=== PATIENT | female | born 1985 | race Caucasian/White ===

== ENCOUNTER → 2020-07-18 11:35 | Outpatient (CLI) | payer OTHER, SELFPAY | PROVIDERS: Visit Provider Student in an Organized Health Care Education/Training Program | DX: Z34.83 Encounter for supervision of other normal pregnancy, third trimester (principal) | CPT/HCPCS: 36415; 86850 ==

== ENCOUNTER → 2020-09-11 | Outpatient (CLI) | payer OTHER, SELFPAY ==
[2020-09-11 15:48] LABS: Mucous, Urine 0 SEEN /hpf (<or=2+)
[2020-09-11 16:09] LABS: Color, Urine Yellow (Yellow); Glucose, Dipstick 1000 mg/dl (Normal); Ketone-Dipstick 15 mg/dl (Negative); Leukocyte Esterase-Dipstick 500 /ul (Negative); Nitrite-Dipstick Negative (Negative); Occult Blood-Urine 25 /ul (Negative); Protein-Dipstick 30 mg/dl (Negative); Specific Gravity, Urine 1.025 (1.002-1.030); Urine Bilirubin Dipstick Negative (Negative); Urine Clarity Sl. Cloudy (Clear); Urine Urobilinogen Normal (Normal)
[2020-09-11 16:23] LABS: Squamous Epithelial Cells - UA 10-25 SEEN /hpf (5-10)
[2020-09-11 16:24] LABS: Bacteria 3+ /hpf (None Seen); Red Blood Cells-Urine 0-5 SEEN /hpf (0-5); White Blood Cells 5-10 SEEN /hpf (0-5)
== END | disposition home or self-care (01) ==
LOC: LABSPEC 15:44
PROVIDERS: Visit Provider Obstetrics & Gynecology
DX: Z36.85 Encounter for antenatal screening for Streptococcus B (principal); O26.899 Other specified pregnancy related conditions, unspecified trimester; R39.15 Urgency of urination; Z3A.00 Weeks of gestation of pregnancy not specified
CPT/HCPCS: 81001; 87081; 87086; 87088

== ENCOUNTER 2020-09-27 14:05 | Inpatient (IN) | payer OTHER, SELFPAY ==
[2020-09-27] VITALS (15 sets, daily range): BP systolic 119–149; BP diastolic 71–93; PULSE 75–125; RESP 16–18; TEMP 36.6–37.2; O2SAT 95–99; BMI 44.1
--- NOTE | 2020-09-27 | PLAC_PTH ---
PATIENT: ANTONIO COWART LOC: [facility] U#:[id number] AGE/SX: 35/F ROOM: [facility] RE09/27/[address]: Dr. Sandro Cody MD : 1985 BED: 1 DIS: 09/28/2020 SPEC #: [id number] RECD: 09/27/20 22:02 STATUS: ALBERT LAWRENCE #: [id number] MARJ: 09/27/20 00:[address]: Sandro Cody DEPT: SURGICAL PATHOLOGY RECD BY: Evans Lofton ENTERED: 09/30/20 08:04 SP TYPE: PLACENTA OT DR: No Primary Care Phys Tissues: Placenta, NOS Procedures: Surgery Specimen Level V HEADER OPERATION: Repeat section PRE-OP DIAGNOSIS: Type 2 diabetes, IUFD at 38.3 weeks TISSUE SUBMITTED: Placenta MICROSCOPIC DIAGNOSIS Vail placenta (757 gm): Umbilical cord ? trivascular with no evidence of inflammation. Placental membranes ? minimal acute inflammation and occasional pigmented macrophages Placental disc ? organizing intraparenchymal hemorrhage and mildly increased intraparenchymal fibrin plaques and Tenny-Yuval change. AM:michel 10/01/2020 COMMENT Case has been reviewed in consultation with Dr. Dewey who concurs with the above diagnosis. IDC:SJ MICROSCOPIC DESCRIPTION Slides are reviewed. GROSS DESCRIPTION SPECIMEN: PLACENTA / CLINICAL INFORMATION: A. Weight: Not noted B. Gestational Age: 38 weeks C. Sex: Male PLACENTAL WEIGHT (POST FIXATION): 757 gm PLACENTAL DIMENSIONS: 23 x 17 x 4 cm PLACENTAL SHAPE: Usual ovoid PLACENTAL WEIGHT FOR GESTATIONAL AGE: Over 99th percentile MEMBRANES - Present A. Insertion: Marginal B. Site of rupture from edge: The membranes are fragmented and appear to be ruptured at the margin of the placenta. C. Color of membrane: Vallejo-espinoza D. Abnormalities: None UMBILICAL CORD - Present A. Color: Vallejo-espinoza B. Insertion: Centrally inserted, pink and macerated C. Length: 39 cm D. Diameter: 2.5 cm E. Number of vessels: Three F. Abnormalities: None PLACENTAL DISC - Present A. Color of surface: Vallejo-espinoza B. surface abnormalities: None C. Maternal cotyledons: Intact with minimal tears D. Attached retro placental clot: No clot E. Cut surface: Dark red and spongy F. Lesions: Sections reveal a vallejo, indurated lesion measuring 2.5 cm in greatest dimension. G. Separate clot: Absent SECTIONS SUBMITTED: 1. Membrane roll 2. Cord, maternal end 3. Cord, end 4. Placental disc, and maternal surfaces, lesion 5. Placental disc, and maternal surfaces 6. Placental disc, and maternal surfaces SJ:michel 09/30/20 TC:5 CPT: 71021
[2020-09-27] MEDS: Lactated Ringers 1,000 ML 999 ML IV (15:20)
[2020-09-27] MEDS: Lactated Ringers 1,000 ML 150 ML IV (16:20)
[2020-09-27 16:43] LABS: Absolute Lymphocyte Count 1.29 X10^3/uL (0.83-4.51); Absolute Neutrophil Count 5.6 X10^3/uL (2.0-7.7); Basophil# 0.02 X10^3/uL; Basophil% 0.3 % (0-1); Eosinophil# 0.04 X10^3/uL; Eosinophils% 0.5 % (0-5); Hematocrit 39.5 % (37-47); Hemoglobin 12.3 g/dL (12.0-15.0); Lymphocyte # 1.29 X10^3/ul (0.83-4.51); Lymphocyte % 16.7 % (19-41); Mean Corp Hgb Conc 31.1 g/dL (32-36); Mean Corpuscular Hgb 26.7 pg (27.0-32.0); Mean Corpuscular Volume 85.7 fL (81-99); Mean Platelet Vol. 10.2 fl (6.2-12.0); Monocyte# 0.63 X10^3/uL; Monocyte% 8.2 % (0-10); NRBC Flagged by Analyzer 0 % (0-5); Neutrophil # 5.62 X10^3/uL (2.7-7.7); Neutrophil % 72.9 % (47-70); Platelet Count 289 K/mm3 (150-450); RBC Distribution Width CV 15.7 % (11.6-14.6); RBC Distribution Width SD 48.3 fl (35.1-43.9); Red Blood Count 4.61 M/mm3 (4.2-5.4); White Blood Count 7.7 K/mm3 (4.4-11.0)
[2020-09-27] MEDS: Acetaminophen 500 MG Tablet 1000 MG PO ×2 (16:44→23:03)
--- NOTE | 2020-09-27 17:09 | PCM.HP.BLA ---
History and Physical Date of Admission: 09/27/20 Chief complaint: demise History of present illness: 35-year-old at 30 weeks and 3 days with SANA: 10/08/2020 by 9-week ultrasound arrives with demise. Denies headache, visual changes, chest pain, shortness of breath, nausea vomiting, right upper quadrant pain. Obstetric history: G1: SAB 02/23/2005 G2: complicated by hemorrhage with cervical laceration transfused 3 units 02/05/2005 G3: 38-week primary section 11/03/2010 G4: Current Past medical history: GDM A2 Medications: Metformin Past surgical history: section, ureteral stents Allergies: No known drug allergies Social history: Denies smoking, alcohol use, drug use Review of systems: Besides above pertinent positives a full review of systems was performed and found to be negative Physical exam: Vital signs: Blood pressure 136/93 pulse 101 General: Severe distress, tearful HEENT: Normocephalic/atraumatic no cervical lymphadenopathy Cardiac/respiratory: No use of accessory muscles, nonlabored breathing Abdomen: Soft, nontender, gravid Extremities: No peripheral edema normal peripheral pulses Psych: Sad, otherwise normal affect normal demeanor nonpressured speech Ultrasound in office: Vertex, no heart tones. Assessment plan: 35-year-old at 30 weeks and 3 days with demise at term. Patient with a previous history of a cervical laceration with transfusion that had primary section for this past history. Based on demise educated on vaginal delivery versus , patient elects for section understands the risk benefits alternatives of section include but are not limited to visceral or vascular injury, prolonged hospitalization, blood loss and need for transfusion, reoperation. Patient state understanding wish to proceed. All questions were answered and consent was signed. Educated patient on maternal and testing risk benefits alternatives, at this time patient declines. For repeat section now, 3 g Ancef.
[2020-09-27 17:35] LABS: Bedside Glucose 120 mg/dL (70-110)
[2020-09-27] MEDS: Sodium Citrate/Citric Acid 30 ML UDC PO (17:50)
--- NOTE | 2020-09-27 19:31 | EX.PCM.OBRPT ---
Details Operative Information Date of Procedure: 09/27/20 Pre-Operative Diagnosis: demise, history of section Post-Operative Diagnosis: demise, history of section Indications Narrative: Procedure: Repeat low transverse section Via Pfannenstiel incision Surgeon: Sandro Cody MD Anesthesia: General EBL: 600 cc Fluids: 1500 cc Urine output: 200 cc Complications: None Specimen: Placenta sent to pathology Findings: Male in vertex position, demise no signs of respiratory effort or heart rate. [place] with signs of anasarca and peeling skin. Otherwise no obvious abnormalities found. Normal uterus, tubes, and ovaries. Consent: Patient diagnosed with demise and history of section elects for repeat section. Patient understands the risk of the procedure include but are not limited to visceral or vascular injury, prolonged hospitalization, blood loss and need for transfusion, reoperation. Patient states understanding wish to proceed. All questions were answered and consent was signed. Procedure: Patient was brought back to the OR where spinal anesthesia was not found to be adequate and general anesthesia was required. 3 g of Ancef and 500 mg of azithromycin were given for infection prophylaxis. Patient was prepared and draped in a supine position with leftward tilt. Pfannenstiel incision was made at the skin with a scalpel. The incision was carried down the fascia with a scalpel. The fascia was excised and extended laterally. Inferior aspect of the fascia was grasped with a clamp and the underlying rectus and pyramidalis muscle were dissected off sharply with Hardin scissors. In a similar fashion the superior aspect of the fascia was grasped and the underlying rectus muscles dissected off sharply. Rectus muscle was dissected at the midline down to the level of the pubic symphysis. Preperitoneal fatty tissue was noted and peritoneum was entered bluntly. Peritoneum was extended superiorly and inferiorly with good visualization of the bladder. Bladder blade was inserted and vesicouterine peritoneum was identified. Low transverse hysterotomy was made. Hand was placed into the hysterotomy and gentle fundal pressure was applied once the head was brought into the hysterotomy and the bladder blade was removed. Head and shoulders were delivered with ease. Cord was cut and clamped. Baby is handed off to nursing. Placenta was delivered via cord traction and fundal massage. IV oxytocin was initiated in order to facilitate uterine contractions. Uterus was exteriorized and wiped out with dry laparotomy sponges in order to remove remaining placental membranes. Uterus was closed in continuous running fashion. Second layer was performed. Good hemostasis noted. Uterus was placed back in the abdominal cavity and the incision was reinspected. Good hemostasis was noted. Fascia was closed in a continuous running fashion. Skin was closed in a subcuticular fashion. All counts correct x2. Patient tolerated the procedure well was brought to recovery in a stable condition.
[2020-09-27] MEDS: Oxytocin 30 units/NS 500 ml 30 UNITS/500 ML IV.SOLN 167 UNITS IV (19:40)
[2020-09-27] MEDS: 0.9% Saline Lock 10 ML Syringe IV (20:35)
[2020-09-27] MEDS: Ketorolac 30 MG/ML Syringe IV (20:36)
[2020-09-27 22:04] LABS: Pathology Specimen OB SEE PATHOLOGY REPORT
[2020-09-27 22:15] LABS: Bedside Glucose 153 mg/dL (70-110)
[2020-09-27] MEDS: Lactated Ringers 1,000 ML 100 ML IV (22:45)
[2020-09-28] VITALS (163 sets, daily range): BP systolic 106–126; BP diastolic 59–77; PULSE 78–120; RESP 16–18; TEMP 36.8–37.7; O2SAT 90–100
[2020-09-28] MEDS: Zolpidem Tartrate 5 MG Tablet PO (00:30)
[2020-09-28] MEDS: Ketorolac 30 MG/ML Syringe IV ×3 (02:32→14:35)
[2020-09-28] MEDS: Acetaminophen 500 MG Tablet 1000 MG PO ×2 (04:24→10:54)
[2020-09-28 06:51] LABS: Bedside Glucose 120 mg/dL (70-110)
[2020-09-28 07:02] LABS: Hematocrit 31.5 % (37-47); Hemoglobin 9.8 g/dL (12.0-15.0); Mean Corp Hgb Conc 31.1 g/dL (32-36); Mean Corpuscular Hgb 26.9 pg (27.0-32.0); Mean Corpuscular Volume 86.5 fL (81-99); Mean Platelet Vol. 9.6 fl (6.2-12.0); Platelet Count 244 K/mm3 (150-450); RBC Distribution Width CV 15.9 % (11.6-14.6); RBC Distribution Width SD 49.1 fl (35.1-43.9); Red Blood Count 3.64 M/mm3 (4.2-5.4); White Blood Count 8.6 K/mm3 (4.4-11.0)
[2020-09-28] MEDS: 0.9% Saline Lock 10 ML Syringe IV ×2 (09:06→14:35)
[2020-09-28] MEDS: metFORMIN (XR) 500 MG Tablet PO (09:06)
--- NOTE | 2020-09-28 10:06 | NURSING ---
read montague sticker to get insertion info. was placed by ROBBIE THORNTON at 1805 yesterday
[2020-09-28] MEDS: Senna/Docusate Sodium 1 Tablet PO (10:54)
--- NOTE | 2020-09-28 11:00 | PCM.DC ---
Discharge Instructions Diet Discharge Diet: No restrictions Activity Discharge Activity: Return to Normal Activity, May Drive, May Shower and - (No tub baths for 2 weeks) May resume sexual activity in: 4-6 weeks Lifting Restrictions: No lifting over 25 pounds for 2 to 3 weeks Dressing / Incision Call your doctor if your incision/area has: Continuous Slow Oozing and Foul Smelling Discharge Call your doctor if you observe: Fever of 101 or Higher, Shortness of breath and Chest pain Follow Up Care Please Follow Up With: Sandro Cody MD When: 1 week follow-up Test Results: Test results from this visit will be discussed in further detail at your follow-up appointment, if applicable. Discharge Plan Admission Admit Date/Time: 09/27/20 14:05 Primary Reason for Your Visit: demise Attending Provider: Sandro Cody Primary Care Provider: Care Physician,Jennifer Primary Discharge Orders/Prescriptions Prescriptions: New oxycodone 5 mg Tablet 5 mg PO Q4H PRN PRN (Reason: Pain Score 4-10) 4 Days Qty: 24 RF: 0 zolpidem [Ambien] 10 mg tablet 10 mg PO QHS PRN (Reason: insomnia) 14 Days Qty: 14 RF: 0 docusate sodium [Colace] 100 mg capsule 100 mg PO BID Qty: 60 RF: 1 Continued omeprazole 20 mg Capsule,Delayed Release(Dr/Ec) 20 mg PO DAILY RF: 0 metformin 500 mg Tablet Extended Release 24hr 500 mg PO DAILY RF: 0 Discontinued 1 mg Tablet 1 tab PO RF: 0 Referrals / Follow Up: Care Physician,No Primary [Primary Care Provider] - Disposition Disposition (needs filled in before D/C Order can be placed): Home, Self Care
--- NOTE | 2020-09-28 11:01 | PN.OBGYN_ITS ---
Subjective Subjective Patient overall doing well, pain well controlled. Emotionally sad but doing well Objective Data Objective Data Vital Signs: Vital Signs Temp Pulse Resp BP Pulse Ox 98.8 F 90 18 124/75 H 95 09/28/20 08:56 09/28/20 10:00 09/28/20 10:00 09/28/20 08:58 09/28/20 10:00 Oxygen Delivery Method Room Air Weight: 281 lb 15.539 oz Body Mass Index (BMI) 44.1 Intake & Output: Intake and Output for Last 24 Hours 09/26/20 09/27/20 09/28/20 23:59 23:59 23:59 Intake Total 2189 / 2189 1696 / 1696 Output Total 250 / 250 1800 / 1800 Balance 193 / 193 -104 / -104 Lab / Micro Data Result Diagrams: 09/28/20 06:45 Labs: Laboratory Results - last 24 hr 09/27/20 15:20: WBC 7.7, RBC 4.61, Hgb 12.3, Hct 39.5, MCV 85.7, MCH 26.7 L, MCHC 31.1 L, RDW Std Deviation 48.3 H, RDW Coeff of Nan 15.7 H, Plt Count 289, MPV 10.2, Immature Gran % (Auto) 1.400 H, Neut % (Auto) 72.9 H, Lymph % (Auto) 16.7 L, Barren % (Auto) 8.2, Eos % (Auto) 0.5, Baso % (Auto) 0.3, Absolute Neuts (auto) 5.6, Absolute Lymphs (auto) 1.29, Nucleated RBC % 0 09/27/20 15:20: Blood Type O NEGATIVE, Antibody Screen NEGATIVE 09/27/20 16:58: POC Glucose 120 H 09/27/20 21:30: Screen NEGATIVE, Baby's Blood Type TNP, Baby's PATITO TNP 09/27/20 21:32: POC Glucose 153 H 09/28/20 06:43: POC Glucose 120 H 09/28/20 06:45: WBC 8.6, RBC 3.64 L, Hgb 9.8 L, Hct 31.5 L, MCV 86.5, MCH 26.9 L , MCHC 31.1 L, RDW Std Deviation 49.1 H, RDW Coeff of Nan 15.9 H, Plt Count 244, MPV 9.6 Micro: Microbiology 09/27/20 16:00 Mucosa - Nose SARS-CoV-2 Antigen (Rapid) - Final Physical Exam Const alert, oriented x3, no apparent distress, average body habitus, healthy appearing and well nourished HEENT normocephalic Head and Scalp: atraumatic Face and Sinus: normal facial exam Resp normal respiratory effort, no retractions and no use of accessory muscles Extremity normal to inspection, full ROM and no clubbing, cyanosis or edema Psych Psych Narrative: Mildly depressed, tearful Assessment & Plan (1) delivery delivered: PLAN: Postop day 1 status post repeat section for demise at 38 weeks. Patient being well supported by , has seen financial economist and wishes to go home with her family. Is tearful, discussed depression at this time patient would like expectant management. Does have difficulty sleeping. Pain overall well controlled. Okay to discharge home today. Follow-up in 1 week
--- NOTE | 2020-09-28 11:54 | CASEMGMT ---
Addendum entered by Mirna Angel 09/28/20 21:40: SW asked ROBBIE Brown to provide patient with information about [facility] and Share and Loss support to patient. Mirna NIETO Original Note: GUANAKITO Note Referral Source: Project Development Director Referral Reason: Demise SW called and spoke to broker in charge, Mary. She said that the was in the morgue as patient did not want to visit the anymore. RN said that, per patient's request, the salsa dance instructor had been called and was coming to give a blessing to the . SW met with patient and her . Both appeared to be very appropriately grieving and tearful. reports that they are still in shock. Patient reports they have local family who is a support. Patient said that they are planning to go home today. Patient asked about grief counseling. SW explained that patient could call hospice to see about a grief counselor in the area. Patient said that she did not want a support group. /FOB said that they could also contact insurance to see who would be a provider for grief counseling. Patient and her voiced no needs or concerns at this time. Emotional support provided to patient and her /FOB. SW also advised that if patient needs any additional support to contact the social worker health services Angélica Melara or any SW staff at [facility] for support. Patient verbalized understanding. SW will remain available today if further needs or issues arise. Plan: Home, GUANAKITO provided emotional support. Mirna NIETO
--- NOTE | 2020-09-28 11:59 | NURSING ---
patient chose a home, [facility] in [place]. Rn called and gave needed information, they state they will send someone to hospital to pic up baby.
--- NOTE | 2020-09-28 13:57 | NURSING ---
RN has spent much time in patients room today. She had long conversation with Dr Cody as well. Discussed going home today, she is ok'd to leave at any time. RN encouraged her to make sure she can ambulate well and with pain control before leaving. With discussion, decided will leave late this afternoon. RN also reiterated the importance of frequent ambulation and I.S. use agustín with her cough. Pt verbalizes understanding and agreement.
--- NOTE | 2020-09-28 15:10 | NURSING ---
given phone numbers for [facility] and [facility]
--- NOTE | 2020-09-28 16:39 | NURSING ---
when walking patient out, continued emotional support given. reminded her importance of taking care of herself, she verbalized understanding. states she will call OB with any abnormals
== END 2020-09-28 16:30 | disposition home or self-care (01) | DRG 788 ==
PROVIDERS: Admitting Provider Obstetrics & Gynecology; Referring Provider Obstetrics & Gynecology; Visit Provider Obstetrics & Gynecology
DX: O36.4XX0 Maternal care for intrauterine death, not applicable or unspecified (principal); O34.211 Maternal care for low transverse scar from previous cesarean delivery; Z20.822 Contact with and (suspected) exposure to COVID-19; E66.01 Morbid (severe) obesity due to excess calories; Z86.32 Personal history of gestational diabetes; Z3A.38 38 weeks gestation of pregnancy; Z37.1 Single stillbirth
CPT/HCPCS: 82962; 85025; 85027; 85461; 86850; 86900; 86901; 87426; 88307; 90384; 99218; J7120; A4216; G0378; J2405; J2790

== ENCOUNTER 2021-03-04 15:26 | Outpatient (CLI) | payer OTHER, SELFPAY ==
[2021-03-04 16:18] LABS: Absolute Lymphocyte Count 1.79 X10^3/uL (0.83-4.51); Absolute Neutrophil Count 4.6 X10^3/uL (2.0-7.7); Basophil# 0.03 X10^3/uL; Basophil% 0.4 % (0-1); Eosinophil# 0.18 X10^3/uL; Eosinophils% 2.5 % (0-5); Hematocrit 39.8 % (37-47); Lymphocyte # 1.79 X10^3/ul (0.83-4.51); Lymphocyte % 24.9 % (19-41); Mean Corp Hgb Conc 32.7 g/dL (32-36); Mean Corpuscular Hgb 27.1 pg (27.0-32.0); Mean Corpuscular Volume 82.9 fL (81-99); Mean Platelet Vol. 8.7 fl (6.2-12.0); Monocyte# 0.55 X10^3/uL; Monocyte% 7.7 % (0-10); NRBC Flagged by Analyzer 0 % (0-5); Neutrophil % 64.1 % (47-70); Platelet Count 379 K/mm3 (150-450); RBC Distribution Width CV 14.8 % (11.6-14.6); RBC Distribution Width SD 45.1 fl (35.1-43.9); White Blood Count 7.2 K/mm3 (4.4-11.0)
[2021-03-05 08:42] LABS: HIV - WCH Non-Reactive (Nonreactive); Hepatitis B Surface Antigen Non-Reactive (Nonreactive); Hepatitis C Antibody Non-Reactive (Nonreactive); Rubella IgG Reactive (Nonreactive); Syphilis Antibodies Non-reactive
[2021-03-06 22:07] LABS: Chlamydia By Nucleic Acid AMP Negative (Negative)
[2021-03-07 11:31] LABS: Gonococcus By Nucleic Acid AMP Negative (Negative)
[2021-03-08 16:26] LABS: HPV APTIMA, High Risk Negative (Negative)
== END 2021-03-04 23:59 | disposition short-term general hospital (02) ==
LOC: WOBLAB 15:27
PROVIDERS: Visit Provider Obstetrics & Gynecology
DX: Z34.81 Encounter for supervision of other normal pregnancy, first trimester (principal); Z11.3 Encounter for screening for infections with a predominantly sexual mode of transmission
CPT/HCPCS: 36415; 85025; 86703; 86762; 86780; 86803; 87077; 87086; 87088; 87186; 87340; 87491; 87591; 87624; 88175; G0145

== ENCOUNTER 2021-03-18 14:55 | Outpatient (CLI) | payer OTHER, SELFPAY ==
[2021-03-18 14:58] LABS: Mucous, Urine 0 SEEN /hpf (<or=2+); Red Blood Cells-Urine 0 SEEN /hpf (0-5)
[2021-03-18 17:07] LABS: Color, Urine Yellow (Yellow); Glucose, Dipstick Normal (Normal); Ketone-Dipstick Negative (Negative); Leukocyte Esterase-Dipstick Negative /ul (Negative); Nitrite-Dipstick Negative (Negative); Occult Blood-Urine Negative /ul (Negative); Protein-Dipstick Negative (Negative); Specific Gravity, Urine 1.015 (1.002-1.030); Urine Bilirubin Dipstick Negative (Negative); Urine Clarity Clear (Clear); Urine Urobilinogen Normal (Normal); Urine pH 6.5 (5.0 - 8.0)
[2021-03-18 17:22] LABS: ALB/GLOB Ratio 0.8 RATIO (0.9-2.4); AST(SGOT) 18 U/L (15-37); Alanine Aminotransfer ALT/SGPT 21 U/L (13-56); Albumin, Serum 3.4 g/dL (3.2-5.0); Alkaline Phosphatase 33 U/L (45-117); Anion Gap 7 (5-15); BUN 12 mg/dL (7-18); BUN/Creat Ratio 18.8 RATIO (10-20); Bacteria 1+ /hpf (None Seen); Calcium,Total 8.6 mg/dL (8.5-10.1); Chloride 104 mmol/L (98-107); Creatinine, Serum 0.64 mg/dL (0.55-1.02); EST Glomerular Filtration Rate 112 mL/min (>60); Est Glom Filt Rate - Afr Amer 135 mL/min (>60); Globulin 4.2 g/dL (2.2-4.2); Glucose 101 mg/dL (74-106); LDH 153 U/L (84-246); Potassium 3.9 mmol/L (3.5-5.1); Protein, Total 7.6 g/dL (6.4-8.2); Sodium Level 136 mmol/L (136-145); Squamous Epithelial Cells - UA 5-10 SEEN /hpf (5-10); White Blood Cells 0-5 SEEN /hpf (0-5)
[2021-03-18 17:45] LABS: Protein, Urine (Random) 14.5 mg/dL (<11.9); Protein:Creat Ratio 226 mg/g CRE (0-200)
== END 2021-03-18 23:59 | disposition short-term general hospital (02) ==
LOC: WOBLAB 14:55
PROVIDERS: Visit Provider Obstetrics & Gynecology
DX: I10 Essential (primary) hypertension (principal)
CPT/HCPCS: 36415; 80053; 81001; 82570; 83615; 84156

== ENCOUNTER 2021-04-09 14:42 | Outpatient (CLI) | payer OTHER, SELFPAY | END 2021-04-09 23:59 | disposition home or self-care (01) | PROVIDERS: Referring Provider Obstetrics & Gynecology; Visit Provider Obstetrics & Gynecology | DX: N64.52 Nipple discharge (principal) ==

== ENCOUNTER 2021-04-15 09:30 | Outpatient (CLI) | payer OTHER, SELFPAY ==
--- NOTE | 2021-04-15 09:34 | US_ITS ---
STUDY: ULTRASOUND BREAST - RIGHT REASON FOR EXAM: Female, 36 years old. Nipple discharge in the right breast. TECHNIQUE: Axial and longitudinal images of the RIGHT breast were performed with a high resolution ultrasound transducer. # OF IMAGES: 41 COMPARISON: None. FINDINGS: RIGHT Breast: The retroareolar region of the right breast was examined by ultrasound. No sonographic abnormality is seen. US/Breast Limited Unilateral IMPRESSION: No sonographic abnormality is seen. ASSESSMENT CATEGORY: BIRADS Category 1: Negative. A letter regarding these results will be sent to the patient by the facility within 30 days. Electronically Signed: Talat Curiel MD at 11:09 EST ,
== END 2021-04-15 23:59 | disposition home or self-care (01) ==
PROVIDERS: Visit Provider Obstetrics & Gynecology
DX: Z34.81 Encounter for supervision of other normal pregnancy, first trimester (principal); N64.52 Nipple discharge
CPT/HCPCS: 36415; 76642

== ENCOUNTER 2021-05-12 11:10 | Outpatient (CLI) | payer OTHER, SELFPAY ==
[2021-05-12 13:56] LABS: Hemoglobin A1c 6.1 % (3.8-5.6)
[2021-05-12 13:57] LABS: Thyroid Stim Hormone (TSH) 0.62 uIU/mL (0.358-3.74)
[2021-05-15 01:07] LABS: AFP MoM Value 0.46 (.); Comment Report (.); DIA MoM Value 0.44 (.); DIA Value-EIA 56.62 pg/mL (.); DSR (By Age) 203 (.); DSR (Second Trimester) 10000 (.); Gestat. Age Based On As provided (.); Insulin Dep Diabetes No (.); Maternal Age At EDD 36.7 yr (.); hCG Value 16668 mIU/mL (.)
== END 2021-05-12 23:59 | disposition home or self-care (01) ==
LOC: WOBLAB 11:14
PROVIDERS: Visit Provider Obstetrics & Gynecology
DX: O24.112 Pre-existing type 2 diabetes mellitus, in pregnancy, second trimester (principal)
CPT/HCPCS: 36415; 82105; 82677; 83036; 84439; 84443; 84702

== ENCOUNTER → 2021-08-19 | Outpatient (CLI) | payer OTHER, SELFPAY ==
[2021-08-19 11:57] LABS: Mean Corp Hgb Conc 33.3 g/dL (32-36); Mean Corpuscular Hgb 28.9 pg (27.0-32.0); Mean Corpuscular Volume 86.7 fL (81-99); Mean Platelet Vol. 9.5 fl (6.2-12.0); Platelet Count 314 K/mm3 (150-450); RBC Distribution Width CV 14.3 % (11.6-14.6); RBC Distribution Width SD 45.3 fl (35.1-43.9); Red Blood Count 4.15 M/mm3 (4.2-5.4); White Blood Count 8.5 K/mm3 (4.4-11.0)
[2021-08-19 12:15] LABS: Hemoglobin A1c 6.3 % (3.8-5.6)
== END | disposition home or self-care (01) ==
PROVIDERS: Visit Provider Obstetrics & Gynecology
DX: O24.913 Unspecified diabetes mellitus in pregnancy, third trimester (principal)
CPT/HCPCS: 36415; 83036; 85027; 86850

== ENCOUNTER 2021-09-03 22:40 | Outpatient (CLI) | payer OTHER, SELFPAY ==
[2021-09-03] VITALS (15 sets, daily range): BP systolic 142; BP diastolic 83; PULSE 95–122; TEMP 36.5; O2SAT 94–98
[2021-09-04 00:04] VITALS: PULSE 98; O2SAT 96
[2021-09-04 00:09] VITALS: PULSE 95; O2SAT 96
[2021-09-04 00:50] VITALS: BMI 44.2
--- NOTE | 2021-09-10 13:23 | OB.TRI.NOTE ---
HPI - General HPI Narrative ANTONIO COWART, is a 36 F who presents to labor and delivery with decreased movement at 31 weeks 5 days gestation. PFSH PFSH Medical History (Updated 09/10/21 @ 15:[address] Steve Sparks MD) Diabetes mellitus History of blood transfusion macrosomia depression Stillborn, normal Home Medications metformin 500 mg tablet,extended release 24hr 500 mg PO DAILY diabetes 09/27/20 [History Last Taken 09/02/21 08:00] omeprazole 20 mg capsule,delayed release 20 mg PO DAILY indigestion 09/27/20 [History Last Taken 09/27/20 09:00 20 mg] aspirin 81 mg capsule 81 mg PO DAILY 09/03/21 [History Last Taken Unknown] insulin lispro 100 unit/mL subcutaneous pen 14 unit subcut DAILY 09/03/21 [History Last Taken Unknown] insulin regular human 100 unit/mL injection solution cartridge 20 unit subcut DAILY Check with primary doctor 09/03/21 [History Last Taken Unknown] [id number] 1 mg tablet tab PO 09/03/21 [History Last Taken Unknown] Allergy/AdvReac Type Severity Reaction Status Date / Time No Known Allergies Allergy Verified 09/03/21 23:39 Family History (Updated 09/27/20 @ 15:37 by Susy Vasquez) Father Heart disease Mother CVA (cerebral vascular accident) Mother Diabetes Mother Cancer Surgical History (Updated 09/27/20 @ 15:37 by Susy Vasquez) History of surgery Previous section Social History (Updated 09/27/20 @ 15:37 by Susy Vasquez) number of children: 2 current occupational status: employed current occupation: nurse Smoking Status: Never smoker History Elective abortions Hx Para 2 Spontaneous abortions Hx # Term Pregnancies Ectopic pregnancies Hx # Pregnancies Multiple births # of living children NST FHR Rate Baby A NST Reactive:: Yes FHR Category:: Category I Assessment & Plan (1) Decreased movement: PLAN: 31+ week intrauterine with decreased movement. Reactive nonstress test. Discharge to home with routine instructions.
--- NOTE | 2021-09-10 15:08 | OB.TRI.NOTE ---
HPI - General General Date of Service: 09/03/21 HPI Narrative ANTONIO COWART, is a 36 F who presents to labor and delivery with decreased movement. PFSH PFS Medical History (Updated 09/10/21 @ 15:[address] Steve Sparks MD) Diabetes mellitus History of blood transfusion macrosomia depression Stillborn, normal Home Medications metformin 500 mg tablet,extended release 24hr 500 mg PO DAILY diabetes 09/27/20 [History Last Taken 09/02/21 08:00] omeprazole 20 mg capsule,delayed release 20 mg PO DAILY indigestion 09/27/20 [History Last Taken 09/27/20 09:00 20 mg] aspirin 81 mg capsule 81 mg PO DAILY 09/03/21 [History Last Taken Unknown] insulin lispro 100 unit/mL subcutaneous pen 14 unit subcut DAILY 09/03/21 [History Last Taken Unknown] insulin regular human 100 unit/mL injection solution cartridge 20 unit subcut DAILY Check with primary doctor 09/03/21 [History Last Taken Unknown] [id number]-FA 1 mg tablet tab PO 09/03/21 [History Last Taken Unknown] Allergy/AdvReac Type Severity Reaction Status Date / Time No Known Allergies Allergy Verified 09/03/21 23:39 Family History (Updated 09/27/20 @ 15:37 by Susy Vasquez) Father Heart disease Mother CVA (cerebral vascular accident) Mother Diabetes Mother Cancer Surgical History (Updated 09/27/20 @ 15:37 by Susy Vasquez) History of surgery Previous section Social History (Updated 09/27/20 @ 15:37 by Susy Vasquez) number of children: 2 current occupational status: employed current occupation: nurse Smoking Status: Never smoker History Elective abortions Hx Para 2 Spontaneous abortions Hx # Term Pregnancies Ectopic pregnancies Hx # Pregnancies Multiple births # of living children NST FHR Rate Baby A NST Reactive:: Yes FHR Category:: Category I Assessment & Plan (1) Decreased movement: PLAN: 31+ week intrauterine with decreased movement. Reactive nonstress test. Discharge to home with routine instructions.
== END 2021-09-04 00:20 | disposition home or self-care (01) ==
LOC: WPOUT 22:45 → WP 22:46
PROVIDERS: Visit Provider Obstetrics & Gynecology
DX: O36.8130 Decreased fetal movements, third trimester, not applicable or unspecified (principal); Z79.4 Long term (current) use of insulin; O24.113 Pre-existing type 2 diabetes mellitus, in pregnancy, third trimester; O09.513 Supervision of elderly primigravida, third trimester; Z79.82 Long term (current) use of aspirin; Z79.899 Other long term (current) drug therapy; Z3A.31 31 weeks gestation of pregnancy
CPT/HCPCS: 59025; 59050; 99218; G0378

== ENCOUNTER 2021-09-11 12:10 | Inpatient (IN) | payer OTHER, SELFPAY ==
[2021-09-11] VITALS (16 sets, daily range): BP systolic 107–146; BP diastolic 65–83; PULSE 74–123; RESP 15–20; TEMP 36.1–37.2; O2SAT 94–98; BMI 44.6
[2021-09-11] MEDS: Lactated Ringers 1,000 ML 999 ML IV (12:50)
--- NOTE | 2021-09-11 12:59 | HP.PCM.OB_ITS ---
History and Physical Date of Admission: 09/11/21 Chief complaint: Nonreassuring testing History of present illness: 36-year-old G5, P3 living 2 at 32 weeks and 5 days with SANA: 11/01/2021 by LMP arrives after BPP 4 out of 10. Denies headache, visual changes, chest pain, shortness of breath, nausea vomit, right upper quadrant pain. Patient states good movement. is complicated by history of IUFD at 38 weeks, type 2 diabetes, chronic hypertension, Rh- Obstetric history: G1: 42-week female 01/2005 G2: SAB G3: 38-week primary section 10/2010 G4: 38-week repeat section IUFD 09/2020 G5: Current Past medical history: Type 2 diabetes, chronic hypertension Medications: Metformin at 1000 mg twice daily, Humulin 20 units nightly, Humalog 18 units nightly Past surgical history: x2, ureteral stents Allergies: No known drug allergies Family history: Denies history DVT or PE Social history: Denies smoking, alcohol use, drug use Review of systems: Besides above pertinent positives a full review of systems was performed and found to be negative Physical exam: Vitals: Blood pressure 146/81 temperature 99 Fahrenheit SPO2 98% on room air General: Normal-appearing no acute distress HEENT: Normocephalic/atraumatic no cervical lymphadenopathy Cardiac/respiratory: No use of accessory muscles, nonlabored breathing Abdomen: Soft, nontender, gravid Extremities: No peripheral edema normal peripheral pulses Psych: Normal affect and demeanor nonpressured speech Labs: Pending Assessment plan: 36-year-old living 2 at 32 weeks and 5 days with BPP 4/10. Educated patient on results, discussed need for delivery. Discussed case with bung dropper geovany to deliver at [facility]. Patient understands baby may have to get transported to [facility] for tertiary care. Discussed case with anesthesia, patient ate at 10 AM. Anesthesia wishes to wait until 1600 for delivery if possible otherwise general anesthesia. If stable heart tones will wait until 1600 for spinal anesthesia. Cel[place] now, to start insulin drip with elevated blood sugars. Educated patient on risk benefits alternatives of repeat section and delivery, patient states understanding and wished to proceed. All questions answered and consent was signed
[2021-09-11] MEDS: Betamethasone/Betamethasone 30 MG/5 ML Vial 12 MG IM (13:06)
[2021-09-11 13:16] LABS: Absolute Lymphocyte Count 1.64 X10^3/uL (0.83-4.51); Absolute Neutrophil Count 6.5 X10^3/uL (2.0-7.7); Basophil# 0.02 X10^3/uL; Basophil% 0.2 % (0-1); Eosinophil# 0.07 X10^3/uL; Eosinophils% 0.8 % (0-5); Hemoglobin 12.1 g/dL (12.0-15.0); Lymphocyte # 1.64 X10^3/ul (0.83-4.51); Lymphocyte % 18.3 % (19-41); Mean Corp Hgb Conc 32.7 g/dL (32-36); Mean Corpuscular Hgb 27.9 pg (27.0-32.0); Mean Corpuscular Volume 85.3 fL (81-99); Mean Platelet Vol. 9.9 fl (6.2-12.0); Monocyte# 0.63 X10^3/uL; NRBC Flagged by Analyzer 0 % (0-5); Neutrophil # 6.51 X10^3/uL (2.7-7.7); Neutrophil % 72.5 % (47-70); Platelet Count 321 K/mm3 (150-450); RBC Distribution Width CV 13.7 % (11.6-14.6); RBC Distribution Width SD 42.6 fl (35.1-43.9); Red Blood Count 4.34 M/mm3 (4.2-5.4)
[2021-09-11] MEDS: Acetaminophen 500 MG Tablet 1000 MG PO ×2 (13:27→19:48)
[2021-09-11 13:45] LABS: Bedside Glucose 160 mg/dL (74-106)
[2021-09-11] MEDS: Lactated Ringers 1,000 ML 150 ML IV (13:45)
[2021-09-11 14:20] LABS: Bedside Glucose 117 mg/dL (74-106)
[2021-09-11 15:11] LABS: Bedside Glucose 118 mg/dL (74-106)
[2021-09-11] MEDS: Sodium Citrate/Citric Acid 30 ML UDC PO (15:53)
[2021-09-11 16:20] LABS: Bedside Glucose 137 mg/dL (74-106)
--- NOTE | 2021-09-11 17:36 | EX.PCM.OBRPT ---
Details Operative Information Date of Procedure: 09/11/21 Pre-Operative Diagnosis: Nonreassuring testing, history of section, desires permanent sterilization Post-Operative Diagnosis: Nonreassuring testing, history of section, desires permanent sterilization Indications Narrative: Procedure: Repeat low transverse section Via Pfannenstiel incision bilateral salpingectomy Surgeon: Sandro Cody MD Anesthesia: Spinal EBL: 600 cc IV fluids: 1200 cc Urine output: 400 cc Complications: None Specimen: Bilateral fallopian tubes Findings: Male infant in vertex position Apgars 8/8. Normal uterus, tubes, and ovaries. Consent: Patient arrived after nonreassuring testing and desires permanent sterilization for repeat section and bilateral tubal ligation. Patient understands the risk of the procedure include but are not limited to visceral or vascular injury, prolonged hospitalization, blood loss need for transfusion, reoperation. Patient stated understanding and wished to proceed. All questions were answered and consent was signed. Procedure: Patient was brought back to the OR where spinal anesthesia was found to be adequate. 3 g of Ancef were given for infection prophylaxis. Patient was prepared and draped in a supine position with leftward tilt. A Pfannenstiel incision made at the skin with a scalpel. The incision was carried down to the fascia with a scalpel. The fascia was excised extended laterally. Inferior aspect of the fascia was grasped with a clamp and the underlying rectus and pyramidalis muscle were dissected off sharply with Hardin scissors. In a similar fashion the superior aspect of the fascia was grasped with a clamp and the underlying rectus muscle was dissected off sharply. Rectus muscle was dissected at the midline down to the level of pubic symphysis. Preperitoneal fatty tissue was noted and peritoneum was entered bluntly. Peritoneum was extended superiorly and inferiorly with good visualization of the bladder. Bladder blade was inserted and vesicouterine peritoneum was identified. Low transverse hysterotomy was made. Hand was placed into the incision and gentle fundal pressure was applied once the head was brought into the incision and the bladder blade was removed. Head and shoulders were delivered with ease. Cord was cut and clamped. Baby is handed off to nursing. Placenta was delivered via cord traction and fundal massage. Uterus was exteriorized and wiped out with dry laparotomy sponge in order to remove remaining placental membranes. IV oxytocin was initiated in order to facilitate uterine contractions. Uterus was closed in continuous running fashion. Right fallopian tube was identified out to the fimbriae and the mesosalpinx was cut and cauterized with the LigaSure device. In similar fashion the left fallopian tube was identified out to the fimbria and the mesosalpinx was cut and cauterized with LigaSure device. Bilateral fallopian tubes were sent to pathology. Good hemostasis was noted bilaterally. Uterus was placed back into the abdominal cavity and good hemostasis was noted. Fascia was closed in continuous running fashion with PDS suture. Subcutaneous irrigation was performed and good hemostasis was noted. Skin was closed in a subcuticular fashion. All counts were correct x2. Patient tolerated the procedure well and was brought to recovery in a stable condition.
[2021-09-11] MEDS: Ketorolac 30 MG/ML Syringe IV (18:21)
[2021-09-11] MEDS: Oxytocin 30 units/NS 500 ml 30 UNITS/500 ML IV.SOLN 167 UNITS IV (18:21)
[2021-09-11 18:55] LABS: Bedside Glucose 180 mg/dL (74-106)
--- NOTE | 2021-09-11 19:45 | FALS_PTH ---
PATIENT: ANTONIO COWART LOC: [facility] U#:[id number] AGE/SX: 36/F ROOM: [facility]001 RE09/11/[address]: Dr. Sandro Cody MD : 1985 BED: 1 DIS: 09/12/2021 SPEC #: [id number] RECD: 09/12/21 09:24 STATUS: ALBERT BRAVO #: [id number] MARJ: 09/11/21 19:[address]: Sandro Cody DEPT: SURGICAL PATHOLOGY RECD BY: Gabriella Coburn Tissues: Fallopian tube Procedures: Surgery Specimen Level II HEADER OPERATION: Tubal ligation PRE-OP DIAGNOSIS: Sterilization TISSUE SUBMITTED: Fallopian tubes MICROSCOPIC DIAGNOSIS Bilateral fallopian tubes, salpingectomy: Bilateral fallopian tubes, no pathologic diagnosis. JINNY:michel 09/15/2021 MICROSCOPIC DESCRIPTION Slides are reviewed. GROSS DESCRIPTION Received in fixative is one container labeled with the patient's name and designated bilateral fallopian tubes. The specimen consists of two fallopian tubes with an average length of 5.5 cm and has an average diameter of 0.8 cm. Both fallopian tubes have normal fimbriated ends. No mass lesions are identified. Clinic Office Coordinator sections are submitted in two cassettes as follows: 1 - one fallopian tube, 2??the other fallopian tube. / AM:michel 09/12/2021 TC:4 CPT: 10378 x2
[2021-09-11] MEDS: Lactated Ringers 1,000 ML 100 ML IV (21:09)
[2021-09-11] MEDS: DiphenhydrAMINE 25 MG Capsule PO (22:28)
[2021-09-12] VITALS (11 sets, daily range): BP systolic 106–130; BP diastolic 66–85; PULSE 64–99; RESP 16–18; TEMP 36.2–36.6; O2SAT 94–97
[2021-09-12] MEDS: 0.9% Saline Lock 10 ML Syringe IV ×4 (00:24→13:19)
[2021-09-12] MEDS: Ketorolac 30 MG/ML Syringe IV ×3 (00:24→13:18)
[2021-09-12] MEDS: Acetaminophen 500 MG Tablet 1000 MG PO ×3 (02:18→13:19)
[2021-09-12 06:01] LABS: Hematocrit 31.6 % (37-47); Hemoglobin 10.3 g/dL (12.0-15.0); Mean Corp Hgb Conc 32.6 g/dL (32-36); Mean Corpuscular Hgb 28.5 pg (27.0-32.0); Mean Corpuscular Volume 87.3 fL (81-99); Mean Platelet Vol. 9.7 fl (6.2-12.0); Platelet Count 282 K/mm3 (150-450); RBC Distribution Width CV 13.6 % (11.6-14.6); RBC Distribution Width SD 43.8 fl (35.1-43.9); Red Blood Count 3.62 M/mm3 (4.2-5.4); White Blood Count 13.4 K/mm3 (4.4-11.0)
--- NOTE | 2021-09-12 07:23 | DCINST_ITS ---
Discharge Instructions Diet Discharge Diet: No restrictions Activity Discharge Activity: Return to Normal Activity, May Drive, May Shower and - (No tub baths for 2 weeks) May resume sexual activity in: 4-6 weeks Lifting Restrictions: No lifting over 25 pounds for 2 to 3 weeks Dressing / Incision Call your doctor if your incision/area has: Continuous Slow Oozing and Foul Smelling Discharge Call your doctor if you observe: Fever of 101 or Higher, Shortness of breath and Chest pain Follow Up Care Please Follow Up With: Sandro Cody MD When: Follow-up 2 to 3 weeks postoperatively Test Results: Test results from this visit will be discussed in further detail at your follow- up appointment, if applicable. Discharge Plan Admission Admit Date/Time: 09/11/21 12:10 Attending Provider: Sandro Cody Primary Care Provider: DANII ASENCIO Discharge Orders/Prescriptions Prescriptions: New tramadol 50 mg tablet 50 mg PO TID PRN (Reason: pain (scale score 7-10)) 4 Days Qty: 12 0RF Continued omeprazole 20 mg Capsule,Delayed Release(Dr/Ec) 20 mg PO PRN PRN (Reason: gerd) metformin 500 mg Tablet Extended Release 24hr 1,000 mg PO DAILY [id number] 1 mg Tablet 1 tab PO DAILY aspirin 81 mg Capsule 81 mg PO DAILY calcium carbonate 500 mg calcium (1,250 mg) Tablet 500 mg PO DAILY vit A-vit D3-vit E-vit K 2,000 unit-2000 unit-1,000 mcg Capsule 1 cap PO DAILY Discontinued insulin lispro [Humalog Pen] 100 unit/mL Insulin Pen 16 unit SUBCUT DAILY Humulin R Regular U-100 Insuln 100 unit/mL Cartridge 20 unit subcut DAILY Referrals / Follow Up: DANII ASENCIO [Other] Disposition Disposition (needs filled in before D/C Order can be placed): Home, Self Care
--- NOTE | 2021-09-12 07:24 | PN.OBGYN_ITS ---
Subjective Subjective No voiding complaints. Pain well controlled. Ambulating. Tolerating regular diet. Voiding spontaneously Objective Data Objective Data Vital Signs: Vital Signs Temp Pulse Resp BP Pulse Ox O2 Del Method FiO2 98 F 85 18 125/71 H 97 Room Air 95 09/12/21 05:35 09/12/21 05:35 09/12/21 05:35 09/12/21 05:35 09/12/21 05:35 09/12/21 05:35 09/11/21 18:56 Oxygen Delivery Method Room Air Weight: 276 lb 8 oz Body Mass Index (BMI) 44.6 Intake & Output: Intake and Output for Last 24 Hours 09/10/21 09/11/21 09/12/21 23:59 23:59 23:59 Intake Total 2900 / 2900 843.33 / 843.33 Output Total 600 / 600 350 / 350 Balance 2300 / 2300 493.33 / 493.33 Lab / Micro Data Result Diagrams: 09/12/21 05:40 Labs: Laboratory Results - last 24 hr 09/11/21 12:40: POC Glucose 160 H 09/11/21 12:50: WBC 9.0, RBC 4.34, Hgb 12.1, Hct 37.0, MCV 85.3, MCH 27.9, MCHC 32.7, RDW Std Deviation 42.6, RDW Coeff of Nan 13.7, Plt Count 321, MPV 9.9, Immature Gran % (Auto) 1.200 H, Neut % (Auto) 72.5 H, Lymph % (Auto) 18.3 L, Terry % (Auto) 7.0, Eos % (Auto) 0.8, Baso % (Auto) 0.2, Absolute Neuts (auto) 6.5, Absolute Lymphs (auto) 1.64, Nucleated RBC % 0 09/11/21 12:50: Blood Type O NEGATIVE, Antibody Screen NEGATIVE 09/11/21 13:46: POC Glucose 117 H 09/11/21 14:50: POC Glucose 118 H 09/11/21 15:59: POC Glucose 137 H 09/11/21 18:25: POC Glucose 180 H 09/12/21 05:40: WBC 13.4 H, RBC 3.62 L, Hgb 10.3 L, Hct 31.6 L, MCV 87.3, MCH 28.5, MCHC 32.6, RDW Std Deviation 43.8, RDW Coeff of Nan 13.6, Plt Count 282, MPV 9.7 Micro: Microbiology 09/11/21 12:50 Nasal Secretion SARS-CoV-2 Antigen (Rapid) - Final Physical Exam Const alert, oriented x3, no apparent distress, average body habitus, healthy appearing and well nourished HEENT normocephalic and moist oral mucous membranes Eyes PERRL Neck full ROM Resp normal respiratory effort, no retractions and no use of accessory muscles GI GI Narrative: Soft, nontender, bandage clean dry and intact Extremity normal to inspection, full ROM and no clubbing, cyanosis or edema Neuro moves all extremities and no focal motor deficits Psych mental status grossly normal, affect normal, speech normal and activity/motor behavior normal Assessment & Plan (1) delivery delivered: PLAN: Postop day 1 status post repeat section bilateral tubal ligation. Breast-feeding. Pain well controlled. Baby being transferred to [facility]. Patient wishes to discharge home today risk-benefit alternatives discussed. Patient states understanding wish to proceed. Okay to discharge home today
[2021-09-12] MEDS: Senna/Docusate Sodium 1 Tablet PO (08:06)
[2021-09-12] MEDS: Enoxaparin 40 MG/0.4 ML Syringe SC (08:06)
[2021-09-12] MEDS: metFORMIN (XR) 500 MG Tablet PO (08:06)
[2021-09-12 08:31] LABS: Bedside Glucose 127 mg/dL (74-106)
[2021-09-15 15:06] LABS: Pathology Specimen OB SEE PATHOLOGY REPORT
== END 2021-09-12 17:35 | disposition home or self-care (01) | DRG 783 ==
PROVIDERS: Admitting Provider Obstetrics & Gynecology; Visit Provider Obstetrics & Gynecology
DX: O28.1 Abnormal biochemical finding on antenatal screening of mother (principal); O24.12 Pre-existing type 2 diabetes mellitus, in childbirth; O10.92 Unspecified pre-existing hypertension complicating childbirth; E11.65 Type 2 diabetes mellitus with hyperglycemia; Z79.4 Long term (current) use of insulin; O34.211 Maternal care for low transverse scar from previous cesarean delivery; Z30.2 Encounter for sterilization; Z20.822 Contact with and (suspected) exposure to COVID-19; Z37.0 Single live birth; Z3A.32 32 weeks gestation of pregnancy
CPT/HCPCS: 59025; 59050; 82962; 85025; 85027; 86850; 86900; 86901; 87426; 88302; 99218; J7120; A4216; G0378; J0702; J2405